=== PATIENT | female | born 2005 | race Caucasian/White ===

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

== ENCOUNTER 2024-05-17 11:58 | Outpatient (CLI) | payer BC, SELFPAY | END 2024-05-17 11:59 | disposition home or self-care (01) | LOC: NFLDREF 05-20 14:04 | PROVIDERS: PCP Family Medicine; Referring Provider Family Medicine; Visit Provider Nurse Practitioner Family | DX: R39.9 Unspecified symptoms and signs involving the genitourinary system (principal) | CPT/HCPCS: 87086 ==

== ENCOUNTER 2025-07-11 14:12 | Outpatient (CLI) | payer BC, SELFPAY ==
[2025-07-11 18:54] LABS: Chlamydia DNA Amplified* NOT DETECTED (No Detected); GC DNA Amplified* NOT DETECTED (No Detected)
[2025-07-18 08:05] LABS: Pap Test Digital Imaging Done
== END 2025-07-11 14:13 | disposition home or self-care (01) ==
PROVIDERS: PCP Family Medicine; Visit Provider Registered Nurse
DX: R10.2 Pelvic and perineal pain (principal)
CPT/HCPCS: 87086; 87491; 87591; 87624; 87625; 88141; 88142; 88175